=== PATIENT | female | born 1995 | race Caucasian/White ===

== ENCOUNTER 2018-09-19 09:04 | Emergency (ER) | payer OTHER ==
[2018-09-19 09:16] VITALS: BP 133/79
--- NOTE | 2018-09-19 10:01 | UC ---
Throat Pain/Nasal Yusuf HPI - HPI Summary HPI Summary: 23-year-old female presents with onset of sore throat yesterday. 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 Denies fever, chills, ear pain, dysphagia, nasal congestion, runny nose, cough, nausea, or vomiting. - History of Current Complaint Chief Complaint: UCRespiratory Stated Complaint: SORE THROAT Time Seen by Provider: 09/19/18 09:57 Hx Obtained From: Patient Pain Intensity: 2 - Allergies/Home Medications Allergies/Adverse Reactions: Allergies Allergy/AdvReac Type Severity Reaction Status Date / Time No Known Allergies Allergy Verified 09/19/18 09:16 PMH/Surg Hx/FS Hx/Imm Hx Previously Healthy: Yes - Denies PMH - Surgical History Surgical History: None - Family History Known Family History: Positive: None - Social History Occupation: Student Lives: Dormitory/Roommates Alcohol Use: Weekly Substance Use Type: None Smoking Status (MU): Never Smoked Tobacco Review of Systems All Other Systems Reviewed And Are Negative: Yes Constitutional: Negative: Fever, Chills Skin: Negative: Rash Eyes: Negative: Drainage, Eye Redness ENT: Positive: Sore Throat. Negative: Ear Ache, Nasal Discharge, Sinus Congestion, Sinus Pain/Tenderness Respiratory: Negative: Shortness Of Breath, Cough Cardiovascular: Negative: Palpitations, Chest Pain Gastrointestinal: Negative: Abdominal Pain, Vomiting, Diarrhea, Nausea Genitourinary: Positive: Negative Musculoskeletal: Positive: Negative Neurological: Positive: Negative Is Patient Immunocompromised?: No Physical Exam - Summary Physical Exam Summary: GENERAL APPEARANCE: Well developed, well nourished, alert and cooperative, and appears to be in no acute distress. EYES: Conjunctiva clear. No drainage. EARS: External auditory canals and tympanic membranes clear, hearing grossly intact. NOSE: No nasal discharge. THROAT: Mild pharyngeal erythema. No tonsilar inflammation, swelling, exudate, or lesions. Uvula midline. Oral cavity normal. Teeth and gingiva in good general condition. NECK: Neck supple, non-tender without lymphadenopathy. CARDIAC: Normal S1 and S2. No S3, S4 or murmurs. Rhythm is regular. There is no peripheral edema, cyanosis or pallor. Extremities are warm and well perfused. Capillary refill is less than 2 seconds. Peripheral pulses intact. LUNGS: Clear to auscultation without rales, rhonchi, wheezing or diminished breath sounds. ABDOMEN: Positive bowel sounds. Soft, nondistended, nontender. No guarding or rebound. No masses or hepatosplenomegally. MUSKULOSKELETAL: ROM intact to all extremities. No joint erythema or tenderness. Normal muscular development. Normal gait. SKIN: Skin normal color, texture and turgor with no lesions or eruptions. Triage Information Reviewed: Yes Vital Signs: Initial Vital Signs Temp 97.8 F 09/19/18 09:12 Pulse 81 09/19/18 09:12 Resp 18 09/19/18 09:12 BP 133/79 09/19/18 09:12 Pulse Ox 98 09/19/18 09:12 Vital Signs Reviewed: Yes Throat Pain/Nasal Course/Dx - Course Course Of Treatment: 23-year-old female presents with onset of sore throat yesterday. 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 Denies fever, chills, ear pain, dysphagia, nasal congestion, runny nose, cough, nausea, or vomiting. Afebrile. Vital signs stable. Exam revealed some mild pharyngeal erythema but otherwise was unremarkable. Rapid strep test was negative recommending symptomatic treatment for viral pharyngitis versus postnasal drip due to seasonal allergies. Recommending symptomatic treatment. She is to return here or follow up with her primary care provider in 3-5 days if symptoms persist. Anticipatory guidance and warning symptoms were reviewed with the patient. Verbalizes understanding and agrees with plan of care. - Differential Dx/Diagnosis Differential Diagnosis/HQI/PQRI: Pharyngitis, Sinusitis, Tonsillitis, URI Provider Diagnosis: Viral pharyngitis Discharge - Sign-Out/Discharge Documenting (check all that apply): Patient Departure All imaging exams completed and their final reports reviewed: No Studies - Discharge Plan Condition: Stable Disposition: HOME Patient Education Materials: Pharyngitis (ED) Referrals: No Primary Care Phys,NOPCP [Primary Care Provider] - Additional Instructions: Your rapid strep test in the clinic today was negative. Your symptoms are likely from a viral infection. Viral infections do not respond to antibiotics and are limited to the treatment of symptoms. Viral infections typically run their course in 7-10 days. Drink plenty of fluids to avoid dehydration especially if you are running any fever. Use salt water gargles several times a day. Take over the counter acetaminophen (Tylenol) or ibuprofen (Advil, Motrin) according to directions as needed for pain or fever. You may also use Chloraseptic spray or Cepacol lonzenges according to directions which contain a numbing medication and can provide some temporary relief from your sore throat. Return here or follow up with your primary care provider in 3-5 days if symptoms persist. Seek immediate medical attention in the emergency room if you have fever greater than 100.5 F despite taking acetaminophen or ibuprofen, are unable to swallow or develop drooling, are unable to open your mouth fully, are unable to eat or drink, have pain that is not relieved with over the counter pain medication, or have any difficulty breathing. - Billing Disposition and Condition Condition: STABLE Disposition: Home
== END 2018-09-19 10:08 | disposition home or self-care (01) ==
LOC: UCEAST 09:04
DX: J02.9 Acute pharyngitis, unspecified (principal)
CPT/HCPCS: 87651; 99211; G0463

== ENCOUNTER 2018-11-02 09:11 | Emergency (ER) | payer OTHER ==
[2018-11-02 09:26] VITALS: BP 134/78
--- NOTE | 2018-11-02 09:44 | UC ---
General HPI - HPI Summary HPI Summary: Here for sore throat, cough, congestion and runny nose. Subjective fevers off and on. Started yesterday. Was exposed to strep throat. No CP or SOB. No N/V /D. No rash. 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 Meds: Reviewed - History of Current Complaint Chief Complaint: UCRespiratory Stated Complaint: SORE THROAT Time Seen by Provider: 11/02/18 09:34 Hx Last Menstrual Period: 10/07/18 Pain Intensity: 4 - Allergy/Home Medications Allergies/Adverse Reactions: Allergies Allergy/AdvReac Type Severity Reaction Status Date / Time No Known Allergies Allergy Verified 11/02/18 09:26 PMH/Surg Hx/FS Hx/Imm Hx Previously Healthy: Yes - Surgical History Surgical History: None - Family History Known Family History: Positive: None - Social History Alcohol Use: Weekly Substance Use Type: None Smoking Status (MU): Never Smoked Tobacco Review of Systems All Other Systems Reviewed And Are Negative: Yes Constitutional: Positive: Fever ENT: Positive: Sore Throat, Sinus Congestion Respiratory: Positive: Cough Physical Exam Triage Information Reviewed: Yes Appearance: Well-Appearing Vital Signs: Initial Vital Signs Temp 97.2 F 11/02/18 09:21 Pulse 85 11/02/18 09:21 Resp 18 11/02/18 09:21 BP 134/78 11/02/18 09:21 Pulse Ox 98 11/02/18 09:21 Vital Signs Reviewed: Yes ENT: Positive: Pharyngeal erythema, Nasal congestion, Tonsillar swelling, Other - mild erythema b/l TM's Neck: Positive: Supple, Nontender Respiratory: Positive: Lungs clear, Normal breath sounds Cardiovascular: Positive: RRR, No Murmur Skin Exam: Normal Course/Dx - Course Course Of Treatment: This is a 23 yr old with URI s/s Strep: Positive Plan Your strep test was positive for strep throat Start Amoxicillin two times per day for 10 days Continue ibuprofen as needed for pain/fever Continue to drink plenty of fluids If symptoms persist or worsen, recommend follow up with your PCP or return to urgent care - Diagnoses Provider Diagnosis: Strep throat Discharge - Sign-Out/Discharge Documenting (check all that apply): Patient Departure All imaging exams completed and their final reports reviewed: No Studies - Discharge Plan Condition: Good Disposition: HOME Prescriptions: Amoxicillin PO (*) [Amoxicillin 500 MG CAP*] 500 mg PO Q12H #20 cap Patient Education Materials: Strep Throat (ED) Forms: *Work Release Referrals: Care [facility] [Outside] No Primary Care Phys,NOPCP [Primary Care Provider] - Additional Instructions: Your strep test was positive for strep throat Start Amoxicillin two times per day for 10 days Continue ibuprofen as needed for pain/fever Continue to drink plenty of fluids If symptoms persist or worsen, recommend follow up with your PCP or return to urgent care - Billing Disposition and Condition Condition: GOOD Disposition: Home
== END 2018-11-02 10:10 | disposition home or self-care (01) ==
LOC: UCEAST 09:11
DX: J02.0 Streptococcal pharyngitis (principal); B95.0 Streptococcus, group A, as the cause of diseases classified elsewhere
CPT/HCPCS: 87651; 99212; G0463